=== PATIENT | male | born 1990 | race Caucasian/White ===

== ENCOUNTER 2021-01-01 19:41 | Emergency (ER) | payer OTHER, SELFPAY ==
[~2021-01-01] VITALS: Ht 170.2 cm; Wt 68.0 kg
--- NOTE | 2021-01-01 19:57 | NUR ---
Patient to ER bed 05 to gown for evaluation. Side rails up.
--- NOTE | 2021-01-01 19:58 | NUR ---
Patient placed on suicide precautions. Patient placed in room within close proximity to nurses' station for closer observation and monitoring. All clothing removed, placed in hospital gown. Metal detector wand used to further screen patient of any potential hazardous belongings. All belongings inventoried, placed in bags and removed from room. Cabinets locked. BP and pulse oximeter cords, and key sander leads removed.
--- NOTE | 2021-01-01 19:58 | NUR ---
Called order to delivery supervisor (Mihir) and request sitter.
--- NOTE | 2021-01-01 19:59 | NUR ---
Unable to obtain data-Suicidal Risk -Patient confused, lethargic .
--- NOTE | 2021-01-01 20:06 | NUR ---
BIB FRIENDS FOR SUICIDE ATTEMPT BY DRUG OVERDOSE. INGESTED TWO BOTTLES OF MEDICATION WITH UNKNOWN AMOUNT. MED BOTTLES DEPAKOTE 250MG TAB, OLANZAPINE 5MG TAB
--- NOTE | 2021-01-01 20:06 | NUR ---
STAT EKG by EMT
--- NOTE | 2021-01-01 20:09 | NUR ---
VSS, EKG COMPLETED, CLOTHING REMOVED
[2021-01-01 20:10] VITALS: BP_SYST 114
--- NOTE | 2021-01-01 20:20 | NUR ---
Blood for labwork drawn from greenhouse florist. Patient tolerated well.
--- NOTE | 2021-01-01 20:21 | NUR ---
ER at bedside examining patient.
--- NOTE | 2021-01-01 20:24 | NUR ---
Called Poison Control at [phone] and spoke with Fransisca. Per recommendations: lab test Calcium, Potassium, Magnesium, Lactic Level , Amonia Level-NG tube -Bowel Irrigation and obseved over 4 hour, place on monitoring and evaluation advisor, re-check BP, after 4 hours re-check patient, level of conscious, BP, heart rate, RR, lab test . Dr. Brewster notified. Will continue to monitor patient.
--- NOTE | 2021-01-01 20:24 | NUR ---
Note undone in EDM - 01/01/21 at 2333 by [email or web address] Called Poison Control at [phone] and spoke with Fransisca. Per recommendations: lab test Calclium, Potassium, Magnisium, Latic Level , Amonia Level-NG tube -Bowel Irrigation . Dr. Brewster notified. Will continue to monitor patient.
[2021-01-01] MEDS ORDERED: ACTIVATED CHARCOAL 50 GM ORAL.SUSP PO ONE (20:29)
[2021-01-01] MEDS ORDERED: NACL 0.9% 1,000 ML IV ONE (20:30)
[2021-01-01 20:31] LABS: BASOPHILS % (AUTO) 0.7 % (0.0-2.0); EOSINOPHILS # (AUTO) 0.3 K/uL (0.0-0.4); EOSINOPHILS % (AUTO) 4.9 % (0.0-4.0); HEMATOCRIT 41.4 % (36-54); HEMOGLOBIN 14.3 g/dL (14.0-18.0); MEAN CORPUSCULAR HEMOGLOBIN 31 pg (27-31); MEAN CORPUSCULAR HGB CONC 35 % (32-36); MEAN CORPUSCULAR VOLUME 90 fL (79.0-98.0); MONOCYTES # (AUTO) 0.8 K/uL (0.0-1.0); MONOCYTES % (AUTO) 13.3 % (1.7-9.3); NEUTROPHILS # (AUTO) 2.6 K/uL (1.8-7.7); NEUTROPHILS % (AUTO) 46.1 % (40.0-70.0); PLATELET COUNT (AUTO) 121 K/uL (130-430); RED BLOOD CELL COUNT(AUTO) 4.62 MIL/uL (4.2-6.2); RED CELL DISTRIBUTION WIDTH 12.9 % (9.0-15.0); WHITE BLOOD COUNT (AUTO) 5.8 K/uL (4.8-10.8)
--- NOTE | 2021-01-01 20:35 | NUR ---
# 18 gauge angiocath placed to right forearm by EMMA Alcantar. Use of asceptic technique. Opsite placed over site. Blood return noted. Blood for lab drawn from site. Flushed with 10 cc of normal saline. No evidence of infiltration noted. Patient tolerated well.
--- NOTE | 2021-01-01 20:36 | NUR ---
Patient refused activate charcoal PO, Dr. Brewster notified.
[2021-01-01 20:48] LABS: ANION GAP 11 (5-15); CALCIUM 8.6 mg/dL (8.4-11.0); CHLORIDE 106 mmol/L (98-107); CREATININE 1.31 mg/dL (0.55-1.30); GLUCOSE 94 mg/dL (70-99); POTASSIUM 3.5 mmol/L (3.5-5.1); SODIUM SERUM 143 mmol/L (136-145); UREA NITROGEN, BLOOD 25 mg/dL (8-21)
[2021-01-01 20:55] LABS: ALANINE AMINOTRANSFERASE 46 U/L (12-78); ALBUMIN 3.9 g/dL (3.4-4.8); ASPARTATE AMINOTRANSFERASE 52 U/L (10-37); TOTAL BILIRUBIN 1.3 mg/dL (0.0-1.0)
[2021-01-01 21:05] LABS: ALCOHOL, BLOOD < 3 mg/dL (<10); GFR AFRICAN AMERICAN 83 mL/min (>90)
[2021-01-01 21:06] LABS: ACETAMINOPHEN < 1 ug/mL (1-30)
--- NOTE | 2021-01-01 22:18 | NUR ---
In and out cath , collected urine and sent to lab.
--- NOTE | 2021-01-01 22:23 | NUR ---
Attempt -place NG tube, patient restless, moved his head around, yelling, nose bleeding, Dr. Null notified.
[2021-01-01 22:28] LABS: BILIRUBIN,URINE NEGATIVE (NEGATIVE); CLARITY/URINE CLEAR (CLEAR); COLOR,URINE YELLOW (YELLOW); GLUCOSE,URINE NEGATIVE (NEGATIVE); KETONES,URINE 1+ (NEGATIVE); LEUKOCYTE ESTERASE ,URINE NEGATIVE (NEGATIVE); NITRITE, URINE NEGATIVE (NEGATIVE); PROTEIN URINE TRACE (NEGATIVE)
[2021-01-01 22:41] LABS: BLOOD, URINE TRACE (NEGATIVE)
[2021-01-01 22:51] LABS: BARBITURATE, URINE NEGATIVE (NEG <=200); BENZODIAZEPINE, URINE NEGATIVE (NEG <=150); CANNABINOID, URINE POSITIVE (NEG <=50); COCAINE, URINE NEGATIVE (NEG <=150); METHAMPHETAMINES SCREEN,URINE POSITIVE (NEG <=500); OPIATE, URINE NEGATIVE (NEG <=100); PHENCYCLIDINE SCREEN,URINE NEGATIVE (NEG <=25); UR TRICYCLIC ANTIDEPRESSANTS NEGATIVE (NEG <=300); URINE AMPHETAMINE POSITIVE (NEG <=500); URINE METHADONE NEGATIVE (NEG <=200); URINE OXYCODONE SCREEN NEGATIVE (NEG <=100); URINE PROPOXYPHENE SCREEN NEGATIVE (NEG <=300)
[2021-01-01 23:05] LABS: BACTERIA,URINE FEW /HPF (None Seen); MUCUS,URINE 2+ /LPF (None Seen); WBC,URINE 0-3 /HPF (0-3)
--- NOTE | 2021-01-01 23:56 | NUR ---
Blood for labwork drawn from charge aide. Patient tolerated fair.
--- NOTE | 2021-01-02 01:31 | NUR ---
Spoke with Victorino from Poison Control , recommend : re-peat EKG, Amnonia and Valproic Acid and if lab result elevate more, call back.
--- NOTE | 2021-01-02 01:53 | NUR ---
Blood for labwork drawn from coding quality analyst. Patient tolerated well.
--- NOTE | 2021-01-02 02:05 | NUR ---
Patient resting quietly. No acute distress noted.
--- NOTE | 2021-01-02 03:06 | NUR ---
Patient resting quietly. No acute distress noted. Vital signs within normal range.
--- NOTE | 2021-01-02 04:41 | NUR ---
Patient resting quietly. No acute distress noted.
--- NOTE | 2021-01-02 05:49 | NUR ---
Patient resting quietly. No acute distress noted.
--- NOTE | 2021-01-02 06:02 | NUR ---
Sitter at bedside.
--- NOTE | 2021-01-02 06:30 | NUR ---
Patient resting quietly.
--- NOTE | 2021-01-02 07:15 | NUR ---
Assumed care of patient, report received from EMMA Ledesma. Pt currently resting in bed, 1:1 sitter at bedside. V/S stable, no acute distress noted.
--- NOTE | 2021-01-02 07:30 | NUR ---
Patient sleeping. No acute distress noted.
--- NOTE | 2021-01-02 08:00 | NUR ---
Patient sleeping. No acute distress noted.
--- NOTE | 2021-01-02 08:15 | NUR ---
Ordered safety tray for breakfast
--- NOTE | 2021-01-02 08:40 | NUR ---
Breakast tray and clean gown provided to patient. Bedding changed.
--- NOTE | 2021-01-02 08:46 | NUR ---
Suicide risk assessment completed, pt endorses SI x4 days, states he sent a text to his brother that "this was his last day" Attempted to overdose via injection heroine. Reports h/o mental health issues with past admits to [facility]. 1:1 sitter still at bedside.
--- NOTE | 2021-01-02 09:00 | NUR ---
Patient resting quietly. No acute distress noted.
--- NOTE | 2021-01-02 09:40 | NUR ---
Dr. Roldan at bedside for psych eval. Pt placed on 5150 hold, pt will be transfered to a behavioral health facility.
--- NOTE | 2021-01-02 10:00 | NUR ---
Patient resting quietly.
--- NOTE | 2021-01-02 11:00 | NUR ---
Patient sleeping. No acute distress noted.
--- NOTE | 2021-01-02 11:30 | NUR ---
Patient sleeping. No acute distress noted.
--- NOTE | 2021-01-02 12:00 | NUR ---
Patient sleeping. No acute distress noted.
[2021-01-02 12:10] VITALS: BP_SYST 121
--- NOTE | 2021-01-02 12:14 | NUR ---
Patient to be transferred to [facility] . Is being transferred due to higher level of care. Receiving facility has accepting physician and available space. ER physician has signed transfer form. Patient or responsible republican has agreed to transfer and signed form. Patient belongings inventoried and will be sent with patient. Copy of nursing notes, lab reports, EKG, Physicians Orders and X-rays to be sent with patient. Report called to Elke at receiving facility. Receiving physician is Dr. Barnes. [facility] has been called for transfer.
== END 2021-01-02 12:10 ==
LOC: SED 19:41
DX: T42.6X2A Poisoning by other antiepileptic and sedative-hypnotic drugs, intentional self-harm, initial encounter (principal); R00.1 Bradycardia, unspecified; Z20.822 Contact with and (suspected) exposure to COVID-19; Z88.0 Allergy status to penicillin; Y92.89 Other specified places as the place of occurrence of the external cause
CPT/HCPCS: 36415; 80053; 80164; 80307; 81000; 82140; 83605; 83735; 85025; 87426; 93005 ×2; 96360; 99285; G0480; J7030; G0481; G0482